=== PATIENT | male | born 1960 | race Caucasian/White ===

== ENCOUNTER 2017-02-06 11:02 | Inpatient (IN) | payer OTHER ==
[~2017-02-06] VITALS: Ht 180.3 cm; Wt 81.6 kg
[2017-02-06 11:02] VITALS: BP_SYST 124
[2017-02-06] MEDS ORDERED: DULR10 RC (11:28)
[2017-02-06] MEDS ORDERED: LEVE500T13 PO (11:28)
[2017-02-06] MEDS ORDERED: DOCU-144 PO (11:28)
[2017-02-06] MEDS ORDERED: FOLI-43 PO (11:28)
[2017-02-06] MEDS ORDERED: CRAN450C PO (11:28)
[2017-02-06] MEDS ORDERED: THIA100T13 PO (11:29)
[2017-02-06] MEDS ORDERED: LEVO75TA7 PO (11:29)
[2017-02-06] MEDS ORDERED: ACET325T53 PO (11:29)
[2017-02-06] MEDS ORDERED: ACETAMINOPHEN 650 MG SUPP.RECT RC ONE (11:30)
[2017-02-06] MEDS ORDERED: NS 500 ML IV ONE (11:30)
[2017-02-06] MEDS ORDERED: cefTRIAXone 1 GM IVPB PREMIX 50 ML IV ONE (11:30)
[2017-02-06 11:43] LABS: BILIRUBIN,URINE NEGATIVE (NEGATIVE); BLOOD, URINE 3+ (NEGATIVE); CLARITY/URINE SL CLOUDY (CLEAR); COLOR,URINE YELLOW (YELLOW); GLUCOSE,URINE NEGATIVE (NEGATIVE); KETONES,URINE NEGATIVE (NEGATIVE); LEUKOCYTE ESTERASE ,URINE NEGATIVE (NEGATIVE); NITRITE, URINE NEGATIVE (NEGATIVE); PH,URINE 5.5 (5.0-8.0); PROTEIN URINE 2+ (NEGATIVE); UROBILINOGEN,URINE 0.2 (0.2-1.0)
[2017-02-06 11:48] LABS: HEMATOCRIT 47.6 % (36-54); HEMOGLOBIN 15.5 g/dL (14.0-18.0); MEAN CORPUSCULAR HEMOGLOBIN 28 pg (27-31); MEAN CORPUSCULAR HGB CONC 33 % (32-36); MEAN CORPUSCULAR VOLUME 87 fL (79.0-98.0); PLATELET COUNT (AUTO) 297 K/uL (130-430); RED BLOOD CELL COUNT(AUTO) 5.48 MIL/uL (4.2-6.2); RED CELL DISTRIBUTION WIDTH 12.1 % (9.0-15.0); WHITE BLOOD COUNT (AUTO) 18.8 K/uL (4.8-10.8)
[2017-02-06 11:52] LABS: BARBITURATE, URINE NEGATIVE (NEG <=200); BENZODIAZEPINE, URINE NEGATIVE (NEG <=150); COCAINE, URINE NEGATIVE (NEG <=150); METHAMPHETAMINES SCREEN,URINE NEGATIVE (NEG <=500); URINE AMPHETAMINE NEGATIVE (NEG <=500); URINE METHADONE NEGATIVE (NEG <=200)
[2017-02-06 11:53] LABS: CANNABINOID, URINE NEGATIVE (NEG <=50); OPIATE, URINE NEGATIVE (NEG <=100); PHENCYCLIDINE SCREEN,URINE NEGATIVE (NEG <=25); UR TRICYCLIC ANTIDEPRESSANTS NEGATIVE (NEG <=300); URINE OXYCODONE SCREEN NEGATIVE (NEG <=100); URINE PROPOXYPHENE SCREEN NEGATIVE (NEG <=300)
[2017-02-06 12:04] LABS: ANION GAP 13 (5-15); CALCIUM 9.5 mg/dL (8.4-11.0); CHLORIDE 103 mmol/L (98-107); CREATININE 0.92 mg/dL (0.55-1.30); GLUCOSE 195 mg/dL (70-99); POTASSIUM 3.2 mmol/L (3.5-5.1); SODIUM SERUM 138 mmol/L (136-145); UREA NITROGEN, BLOOD 13 mg/dL (8-21)
[2017-02-06 12:05] LABS: GFR AFRICAN AMERICAN 109 mL/min (>90)
[2017-02-06 12:05] LABS: BACTERIA,URINE FEW /HPF (None Seen); RBC,URINE 20-50 /HPF (0-3); WBC,URINE 0-3 /HPF (0-3)
[2017-02-06 12:06] LABS: INR 1.1 (0.80-1.20)
[2017-02-06 12:17] LABS: ATYPICAL LYMPHOCYTES % 1 % (0-0); BAND % (MANUAL) 6 % (0-6); BASOPHILS % (MANUAL) 0 % (0-2); EOSINOPHILS % (MANUAL) 0 % (0-7); LYMPHOCYTES % (MANUAL) 12 % (20-46); MONOCYTES % (MANUAL) 2 % (0-11)
[2017-02-06 12:21] LABS: ALANINE AMINOTRANSFERASE 46 U/L (12-78); ALBUMIN 3.8 g/dL (3.4-4.8); ASPARTATE AMINOTRANSFERASE 26 U/L (10-37); FREE T4 (FREE THYROXINE) 0.8 ng/dL (0.6-1.6); TOTAL BILIRUBIN 0.2 mg/dL (0.0-1.0)
[2017-02-06 12:22] LABS: ALCOHOL, BLOOD < 3 mg/dL (<10)
[2017-02-06] MEDS ORDERED: KCL 40 mEq in D5W 1000 mL 1,000 ML IV ONE (12:45)
[2017-02-06] MEDS ORDERED: LORazepam 2 MG/ML VIAL IVP PRN (13:15)
[2017-02-06] MEDS ORDERED: levETIRAcetam 500 MG in NS 100 ML IV SCH (13:15)
[2017-02-06 14:17] VITALS: BP_SYST 106
[2017-02-06] MEDS ORDERED: ACETAMINOPHEN 325 MG TABLET PO PRN (16:15)
[2017-02-06] MEDS ORDERED: BISACODYL 10 MG/SUPPOSITORY RC PRN (16:15)
[2017-02-06] MEDS ORDERED: LevALBUTEROL HCL 1.25 MG/0.5 ML *CONC.* VIAL.NEB (XOPENEX CONC.) INH PRN (16:30)
[2017-02-06 16:43] VITALS: BP_SYST 122
[2017-02-06] MEDS: POTASSIUM CHLORIDE 20 MEQ in D5/0.45 NS 1,000 ML IV SCH (18:07)
[2017-02-06] MEDS: AZITHROMYCIN 500 MG in NS 250 ML IV SCH (18:10)
[2017-02-06 18:14] VITALS: BP_SYST 122
[2017-02-06] MEDS: levETIRAcetam 1,000 MG in NS 100 ML IV SCH ×2 (19:37→20:50)
[2017-02-06 20:00] VITALS: BP_SYST 135
[2017-02-06] MEDS: DOCUSATE SODIUM 100 MG CAPSULE PO SCH (20:48)
[2017-02-06] MEDS: LevALBUTEROL HCL 1.25 MG/0.5 ML *CONC.* VIAL.NEB (XOPENEX CONC.) INH SCH (20:51)
[2017-02-06] MEDS ORDERED: levETIRAcetam 500 MG TABLET PO SCH (21:00)
[2017-02-07 00:17] VITALS: BP_SYST 109
[2017-02-07] MEDS: POTASSIUM CHLORIDE 20 MEQ in D5/0.45 NS 1,000 ML IV SCH ×2 (02:43→23:00)
[2017-02-07] MEDS: LevALBUTEROL HCL 1.25 MG/0.5 ML *CONC.* VIAL.NEB (XOPENEX CONC.) INH SCH ×4 (04:14→19:50)
[2017-02-07 04:30] VITALS: BP_SYST 99
[2017-02-07] MEDS: LEVOTHYROXINE SODIUM 0.075 MG TABLET PO SCH (06:02)
[2017-02-07 06:55] LABS: CALCIUM 8.8 mg/dL (8.4-11.0); CREATININE 0.81 mg/dL (0.55-1.30); POTASSIUM 3.9 mmol/L (3.5-5.1)
[2017-02-07 06:57] LABS: BASOPHILS % (AUTO) 0.2 % (0.0-2.0); HEMATOCRIT 44.3 % (36-54); HEMOGLOBIN 14.7 g/dL (14.0-18.0); LYMPHOCYTES # (AUTO) 1.9 K/uL (1.0-5.5); LYMPHOCYTES % (AUTO) 11.3 % (20.5-51.5); MEAN CORPUSCULAR HEMOGLOBIN 29 pg (27-31); MEAN CORPUSCULAR HGB CONC 33 % (32-36); MEAN CORPUSCULAR VOLUME 87 fL (79.0-98.0); MONOCYTES % (AUTO) 6.1 % (1.7-9.3); NEUTROPHILS # (AUTO) 13.8 K/uL (1.8-7.7); NEUTROPHILS % (AUTO) 82.4 % (40.0-70.0); PLATELET COUNT (AUTO) 241 K/uL (130-430); RED BLOOD CELL COUNT(AUTO) 5.07 MIL/uL (4.2-6.2); RED CELL DISTRIBUTION WIDTH 12.4 % (9.0-15.0); WHITE BLOOD COUNT (AUTO) 16.7 K/uL (4.8-10.8)
[2017-02-07 08:00] VITALS: BP_SYST 106
[2017-02-07] MEDS ORDERED: LORazepam 2 MG/ML VIAL IM ONE (08:45)
[2017-02-07] MEDS ORDERED: COMMUNICATION ORDER XX ONE (08:45)
[2017-02-07] MEDS: levETIRAcetam 1,000 MG in NS 100 ML IV SCH (08:52)
[2017-02-07] MEDS: cefTRIAXone 1 GM in D5W 50 ML IV SCH (08:52)
[2017-02-07] MEDS ORDERED: CRANBERRY FRUIT 450 MG PO SCH (09:00)
[2017-02-07] MEDS: CRANBERRY FRUIT 450 MG PO SCH (09:00)
[2017-02-07] MEDS: DOCUSATE SODIUM 100 MG CAPSULE PO SCH ×2 (09:00→20:50)
[2017-02-07] MEDS: FOLIC ACID 1 MG TABLET PO SCH (09:55)
[2017-02-07] MEDS: THIAMINE HCL 100 MG TABLET PO SCH (09:55)
[2017-02-07] MEDS: levETIRAcetam 500 MG TABLET PO SCH ×2 (09:55→20:49)
[2017-02-07 13:02] VITALS: BP_SYST 105
[2017-02-07] MEDS: LACTULOSE 20 GM/30 ML UDC PO SCH ×2 (15:00→20:50)
[2017-02-07] MEDS: AZITHROMYCIN 500 MG in NS 250 ML IV SCH (15:00)
[2017-02-07 16:50] VITALS: BP_SYST 115
[2017-02-07 16:54] LABS: CKMB RELATIVE INDEX 0.8 (0.0-2.9); CREATINE KINASE MB 5.4 ng/mL (0-3.6)
[2017-02-07 20:00] VITALS: BP_SYST 122
[2017-02-08] VITALS (7 sets, daily range): BP systolic 113–146
[2017-02-08] MEDS: LevALBUTEROL HCL 1.25 MG/0.5 ML *CONC.* VIAL.NEB (XOPENEX CONC.) INH SCH ×4 (01:42→19:37)
[2017-02-08] MEDS: LEVOTHYROXINE SODIUM 0.075 MG TABLET PO SCH (06:07)
[2017-02-08 06:15] LABS: BASOPHILS % (AUTO) 0.3 % (0.0-2.0); EOSINOPHILS # (AUTO) 0.1 K/uL (0.0-0.4); EOSINOPHILS % (AUTO) 0.6 % (0.0-4.0); HEMOGLOBIN 13.9 g/dL (14.0-18.0); LYMPHOCYTES # (AUTO) 2.1 K/uL (1.0-5.5); LYMPHOCYTES % (AUTO) 17.4 % (20.5-51.5); MEAN CORPUSCULAR HEMOGLOBIN 29 pg (27-31); MEAN CORPUSCULAR HGB CONC 33 % (32-36); MEAN CORPUSCULAR VOLUME 86 fL (79.0-98.0); MONOCYTES % (AUTO) 8.3 % (1.7-9.3); NEUTROPHILS # (AUTO) 8.7 K/uL (1.8-7.7); NEUTROPHILS % (AUTO) 73.4 % (40.0-70.0); PLATELET COUNT (AUTO) 250 K/uL (130-430); RED BLOOD CELL COUNT(AUTO) 4.86 MIL/uL (4.2-6.2); RED CELL DISTRIBUTION WIDTH 12.4 % (9.0-15.0); WHITE BLOOD COUNT (AUTO) 11.9 K/uL (4.8-10.8)
[2017-02-08 06:56] LABS: CALCIUM 9.4 mg/dL (8.4-11.0); CREATININE 0.69 mg/dL (0.55-1.30); POTASSIUM 3.6 mmol/L (3.5-5.1)
[2017-02-08 07:17] LABS: CKMB RELATIVE INDEX 0.7 (0.0-2.9); CREATINE KINASE MB 4.7 ng/mL (0-3.6)
[2017-02-08 07:25] LABS: CKMB RELATIVE INDEX 0.5 (0.0-2.9); CREATINE KINASE MB 3.9 ng/mL (0-3.6)
[2017-02-08] MEDS: levETIRAcetam 500 MG TABLET PO SCH ×2 (08:19→20:37)
[2017-02-08] MEDS: FOLIC ACID 1 MG TABLET PO SCH (08:19)
[2017-02-08] MEDS: LACTULOSE 20 GM/30 ML UDC PO SCH ×2 (08:19→20:37)
[2017-02-08] MEDS: THIAMINE HCL 100 MG TABLET PO SCH (08:19)
[2017-02-08] MEDS: DOCUSATE SODIUM 100 MG CAPSULE PO SCH ×2 (08:19→20:37)
[2017-02-08] MEDS: CRANBERRY FRUIT 450 MG PO SCH (08:19)
[2017-02-08] MEDS: cefTRIAXone 1 GM in D5W 50 ML IV SCH (08:40)
[2017-02-08] MEDS: POTASSIUM CHLORIDE 20 MEQ in D5/0.45 NS 1,000 ML IV SCH (08:44)
[2017-02-08] MEDS: CARVEDILOL 3.125 MG TABLET (COREG) PO SCH ×2 (11:00→20:39)
[2017-02-08] MEDS: ASPIRIN 81 MG TAB.CHEW PO SCH (11:00)
[2017-02-08] MEDS: AZITHROMYCIN 500 MG in NS 250 ML IV SCH (13:59)
[2017-02-09] MEDS: LevALBUTEROL HCL 1.25 MG/0.5 ML *CONC.* VIAL.NEB (XOPENEX CONC.) INH SCH ×3 (00:25→12:57)
[2017-02-09 04:45] VITALS: BP_SYST 105
[2017-02-09] MEDS: POTASSIUM CHLORIDE 20 MEQ in D5/0.45 NS 1,000 ML IV SCH (05:04)
[2017-02-09] MEDS: LEVOTHYROXINE SODIUM 0.075 MG TABLET PO SCH (06:40)
[2017-02-09 08:59] VITALS: BP_SYST 142
[2017-02-09] MEDS: levETIRAcetam 500 MG TABLET PO SCH (09:43)
[2017-02-09] MEDS: THIAMINE HCL 100 MG TABLET PO SCH (09:44)
[2017-02-09] MEDS: LACTULOSE 20 GM/30 ML UDC PO SCH (09:45)
[2017-02-09] MEDS: ASPIRIN 81 MG TAB.CHEW PO SCH (09:45)
[2017-02-09] MEDS: FOLIC ACID 1 MG TABLET PO SCH (09:46)
[2017-02-09] MEDS: DOCUSATE SODIUM 100 MG CAPSULE PO SCH (09:46)
[2017-02-09] MEDS: CARVEDILOL 3.125 MG TABLET (COREG) PO SCH (09:50)
[2017-02-09] MEDS: cefTRIAXone 1 GM in D5W 50 ML IV SCH (10:04)
[2017-02-09 12:20] VITALS: BP_SYST 109
[2017-02-09 14:42] VITALS: BP_SYST 109
[2017-02-09] MEDS: AZITHROMYCIN 500 MG in NS 250 ML IV SCH (15:35)
[2017-02-09 16:18] VITALS: BP_SYST 102
[2017-02-09 16:29] VITALS: BP_SYST 102
== END 2017-02-09 18:46 | DRG 720 ==
LOC: SED 11:02 → STU 13:01
PROVIDERS: ADMIT Family Medicine; ATTEND Family Medicine
DX: A41.9 Sepsis, unspecified organism (principal); J69.0 Pneumonitis due to inhalation of food and vomit; G93.40 Encephalopathy, unspecified; G40.901 Epilepsy, unspecified, not intractable, with status epilepticus; F03.90 Unspecified dementia, unspecified severity, without behavioral disturbance, psychotic disturbance, mood disturbance, and anxiety; E03.9 Hypothyroidism, unspecified; Z66 Do not resuscitate; G81.90 Hemiplegia, unspecified affecting unspecified side; I10 Essential (primary) hypertension; I45.10 Unspecified right bundle-branch block; Z79.899 Other long term (current) drug therapy; Z87.820 Personal history of traumatic brain injury; Z87.891 Personal history of nicotine dependence
CPT/HCPCS: 36415; 70450-TC; 71010; 74000-TC; 80048; 80053; 80307; 81000-TC; 82140-TC; 82542; 82550-TC; 82553-TC; 83605; 83880; 84439; 84484; 85007; 85025; 85027; 85610-TC; 87040-TC; 87081; 93005; 93306; 94640; 94760; 96365; 99285; G0482; J0456; J0696; J1953; J3480; J7030; J7050; J7060